=== PATIENT | male | born 1955 | race Caucasian/White ===

== ENCOUNTER 2018-09-27 19:03 | Emergency (ER) | payer OTHER ==
[~2018-09-27 19:03] MED LIST: AUG875 PO; NO RTN MEDS; TRA50 PO; [UNRECOGNIZED DRUG - CODE] OT
--- NOTE | 2018-09-27 19:17 | ER Report ---
History and Physical Time Seen By MD: 19:17 Hx. of Stated Complaint: patient started having pain in right lower back that started around 1400, patient states it is a constant ache. patient has not taken any medications as home. patient had a fall on friday. HPI/ROS CHIEF COMPLAINT: Back pain HISTORY OF PRESENT ILLNESS: 63-year-old male patient presents to emergency room with complaint of back pain. Patient states this pain started out of the blue about 2 to 2:30 this afternoon. Patient states that pain is worse with any type of activity. He denies having any loss of bowel or bladder control. He denies having any saddle paresthesia. Patient states that he is not taking any med ication for this. He denies having any fevers, chills or diarrhea. Patient has had 3 bouts of emesis this afternoon. REVIEW OF SYSTEMS: Respiratory: No cough, no dyspnea. Cardiovascular: No chest pain, no palpitations. Gastrointestinal: No vomiting, no abdominal pain. Musculoskeletal: As noted above Allergies: Coded Allergies: No Known Drug Allergies (Unverified , 09/27/18) Home Meds Active Scripts Ondansetron Hcl (ZOFRAN) 4 Mg Tablet, 4 MG PO Q6H PRN for NAUSEA/VOMITING, #20 TAB Prov:CHANA MAX 09/27/18 Oxycodone Hcl/Acetaminophen (PERCOCET 5-325 MG TABLET) 1 Each Tablet, 1 EACH PO Q4-6H PRN for PAIN, #12 TAB Prov:CHANA MAX 09/27/18 Discontinued Reported Medications Neomy Sulf/Polymyx B Sulf/Hc (Cortisporin Ear Suspension) 10 Ml Drops.susp, 4 GTT OT Q8H for 7 Days 10/14/11 Amoxicillin/Clavulanate K (Augmentin) 875 Mg Tab, 875 MG PO BIDBS, #20 10/14/11 Tramadol Hcl (Ultram) 50 Mg Tab, 50 MG PO Q4-6H PRN, #20 10/14/11 [No Rtn Meds] No Conflict Check 10/14/11 Past Medical/Surgical History Patient denies having any pertinent medical or surgical history. Reviewed Nurses Notes: Yes Hx Smoking: Yes (1/2PPD X > 20 YRS) Hx Substance Use Disorder: No Hx Alcohol Use: Yes (2-3 BEERS NIGHTLY) Constitutional Vital Sign - Last 24 Hours 2/24/19 2/24/19 2/24/19 2/24/19 19:11 19:18 19:30 19:33 Temp 97.3 Pulse 72 87 76 Resp 20 B/P (MAP) 175/104 178/106 (130) Pulse Ox 93 93 91 O2 Delivery Room Air 09/27/18 09/27/18 09/27/18 09/27/18 19:49 20:00 20:03 20:30 Pulse 87 B/P (MAP) 180/108 (132) 177/101 (126) 175/101 (125) Pulse Ox 93 09/27/18 09/27/18 09/27/18 09/27/18 20:33 20:38 20:53 21:00 Pulse 83 87 85 B/P (MAP) 172/119 (136) Pulse Ox 91 94 92 09/27/18 09/27/18 09/27/18 09/27/18 21:08 21:23 21:30 21:38 Pulse 82 82 73 B/P (MAP) 169/100 (123) Pulse Ox 91 94 90 Physical Exam General Appearance: The patient is alert, has no immediate need for airway protection and no current signs of toxicity. Respiratory: Chest is non tender, lungs are clear to auscultation. Cardiac: regular rate and rhythm Gastrointestinal: Abdomen is soft and non tender, no masses, bowel sounds normal. Musculoskeletal: Neck: Neck is supple and non tender. Back: Patient has tenderness to the paraspinal muscles just to the right of the lumbar spine. Extremities have full range of motion and are non tender. Skin: No rashes or lesions. DIFFERENTIAL DIAGNOSIS: After history and physical exam differential diagnosis was considered for back pain including but not limited to muscular pain, herniated disc, spine fracture, intra-abdominal causes and urinary tract infection. Medical Decision Making Data Points Laboratory Hematology Test 09/27/18 19:47 Urine Color Yellow Urine Clarity Clear Urine pH 5.0 pH (4.8-9.5) Urine Specific [place] 1.016 Urine Protein Negative mg/dL (NEGATIVE) Urine Glucose (UA) 150 mg/dL (NEGATIVE) Urine Ketones 20 mg/dL (NEGATIVE) Urine Blood Large (NEGATIVE) Urine Nitrite Negative (NEGATIVE) Urine Bilirubin Negative (NEGATIVE) Urine Urobilinogen Negative mg/dL (0.2-1.9) Urine Leukocyte Esterase Negative (NEGATIVE) Urine RBC 26 /HPF (0-2/HPF) Urine WBC 1 /HPF (0-5/HPF) Urine Squamous Epithelial Cells None /LPF (</=FEW) Urine Bacteria Negative /HPF (NONE-FEW) Urine Mucus None /HPF (NONE-FEW) Chemistry Test 09/27/18 19:47 Urine Color Yellow Urine Clarity Clear Urine pH 5.0 pH (4.8-9.5) Urine Specific [place] 1.016 Urine Protein Negative mg/dL (NEGATIVE) Urine Glucose (UA) 150 mg/dL (NEGATIVE) Urine Ketones 20 mg/dL (NEGATIVE) Urine Blood Large (NEGATIVE) Urine Nitrite Negative (NEGATIVE) Urine Bilirubin Negative (NEGATIVE) Urine Urobilinogen Negative mg/dL (0.2-1.9) Urine Leukocyte Esterase Negative (NEGATIVE) Urine RBC 26 /HPF (0-2/HPF) Urine WBC 1 /HPF (0-5/HPF) Urine Squamous Epithelial Cells None /LPF (</=FEW) Urine Bacteria Negative /HPF (NONE-FEW) Urine Mucus None /HPF (NONE-FEW) Urinalysis Test 09/27/18 19:47 Urine Color Yellow Urine Clarity Clear Urine pH 5.0 pH (4.8-9.5) Urine Specific [place] 1.016 Urine Protein Negative mg/dL (NEGATIVE) Urine Glucose (UA) 150 mg/dL (NEGATIVE) Urine Ketones 20 mg/dL (NEGATIVE) Urine Blood Large (NEGATIVE) Urine Nitrite Negative (NEGATIVE) Urine Bilirubin Negative (NEGATIVE) Urine Urobilinogen Negative mg/dL (0.2-1.9) Urine Leukocyte Esterase Negative (NEGATIVE) Urine RBC 26 /HPF (0-2/HPF) Urine WBC 1 /HPF (0-5/HPF) Urine Squamous Epithelial Cells None /LPF (</=FEW) Urine Bacteria Negative /HPF (NONE-FEW) Urine Mucus None /HPF (NONE-FEW) EKG/Imaging Imaging EXAMINATION: CT abdomen and pelvis without IV contrast HISTORY: Back pain. Hematuria. TECHNIQUE: Axial CT images of the abdomen and pelvis were obtained without IV contrast, with coronal and sagittal 2D reconstructed images. One of the following dose optimization techniques was utilized in the performance of this exam: Automated exposure control; adjustment of the mA and/or kV according to the patient's size; or use of an iterative reconstruction technique. Specific details can be referenced in the facility's radiology CT exam operational policy. COMPARISON: None. FINDINGS: Evaluation of the solid and viscus parenchymal organs is limited without the benefit of IV contrast. Kidney/ureters/bladder: Moderate hydronephrosis of the right kidney. There is an obstructing 5 mm calculus at the UPJ. A small amount of perinephric fluid surrounds the right kidney which may relate to forniceal rupture. Additional nonobstructing 6 mm calculus in the lower pole of the right kidney. Normal course and caliber of the right ureter below the level of the UPJ stone. The left kidney is negative for hydronephrosis. There is a large partially branching calculus in the lower pole of the left kidney extending into adjacent calyces, measuring 1.5 x 1.1 x 1.9 cm. No additional left-sided urinary calculi. The urinary bladder is decompressed and grossly unremarkable. Liver: There are multiple cysts in the liver. A 6 mm calcification in the right lobe of the liver may relate to old granulomatous disease. Gallbladder and bile ducts: Negative. Spleen: Negative. Pancreas: Negative. Adrenal glands: Negative. Bowel and peritoneum: The small bowel and colon are normal in caliber, without evidence of obstruction or any focal inflammatory process. No free fluid or free intraperitoneal air. Small hiatal hernia. Lymph node assessment: Negative. Vessels: Scattered vascular calcifications. Normal caliber abdominal aorta. Musculoskeletal: Severe chronic compression fracture of L1 with 80% loss of height. Multilevel degenerative changes along the spine. There is a prominent Schmorl's node along the superior endplate of L4. No acute osseous findings. Body wall: Small fat-containing left inguinal hernia. Lung bases: Negative. IMPRESSION: 1. Moderate hydronephrosis of the right kidney with an obstructing 5 mm calculus at the UPJ. Mild perinephric fluid surrounding the right kidney may relate to an associated forniceal rupture. 2. Additional nonobstructing calculi in both kidneys including a large partially branching calculus in the lower left kidney measuring up to 1.9 cm. 3. No other acute intra-abdominal findings. 4. Chronic appearing compression fracture of L1 with 80% loss of height Report Dictated By: Brenden Herndon MD at 09/27/2018 8:47 PM Report E-Signed By: Brenden Herndon MD at 09/27/2018 9:05 PM EXAMINATION: Lumbar Spine 4 views HISTORY: Back pain. COMPARISON: CT abdomen/pelvis performed today. FINDINGS: There are 5 lumbar-type vertebral segments. There is severe compression fracture of L1, with 80% loss of height. On the separate CT this appears to be chronic. Slight retropulsion of the posterior superior endplate. Mildly prominent Schmorl's node along the superior endplate of L4. There is a mild convex-left thoracolumbar curve measuring approximately 10 degrees with apex at L1. Otherwise normal alignment. No other evidence of fracture or subluxation along the lumbar spine. Vertebral body height is otherwise maintained. Posterior elements are intact. No pars defect on the oblique views. IMPRESSION: 1. Chronic appearing compression fracture of L1 with 80% loss of height. This is better defined on the separate CT examination. 2. No acute osseous findings along the lumbar spine. Report Dictated By: Brenden Herndon MD at 09/27/2018 9:08 PM Report E-Signed By: Brenden Herndon MD at 09/27/2018 9:11 PM ED Course/Re-evaluation ED Course Patient is between exam room, history and physical were obtained. Differential diagnoses were considered. On examination lungs are clear, heart is regular, abdomen soft nontender. Patient does have some slight tenderness to the paraspinal muscles to the right. A urinalysis was obtained, a lumbar x-ray and because patient had large blood in his urine a CT scan of the abdomen and pelvis was done. I discussed the findings with the patient. He did have large blood in his urine, he had a negative lumbar series, excluding L1 which does have a chronic compression fracture with 80% height loss. CT scan of the abdomen and pelvis did show a 5 mm obstructing stone with moderate hydronephrosis with what appears to be a forniceal rupture. I discussed the case with Dr. Kang, urologist, who recommended going ahead and treating this as a normal kidney stone. He is to follow-up with urology to evaluate for further treatment. Is his goal that he will have the stone moved further down the ureter prior to having to treat. I discussed this with the patient who verbalized understanding and agreement. We will discharge him with a limited supply of pain medication, some nausea medication. I did give him Dr. Kang's information so he can call for follow-up. Decision to Disposition Date: Sep 27, 2018 Decision to Disposition Time: 21:31 Depart Departure Latest Vital Signs Vital Signs Date Time Temp Pulse Resp B/P (MAP) Pulse Ox O2 Delivery O2 Flow Rate FiO2 09/27/18 21:38 73 90 09/27/18 21:30 169/100 (123) 09/27/18 19:11 97.3 20 Room Air Impression: Primary Impression: Renal calculi Condition: Improved Disposition: HOME OR SELF-CARE Referrals: EMILY KANG MD New Scripts Ondansetron Hcl (ZOFRAN) 4 Mg Tablet 4 MG PO Q6H PRN for NAUSEA/VOMITING, #20 TAB Prov: CHANA MAX 09/27/18 Oxycodone Hcl/Acetaminophen (PERCOCET 5-325 MG TABLET) 1 Each Tablet 1 EACH PO Q4-6H PRN for PAIN, #12 TAB Prov: CHANA MAX 09/27/18 Patient Instructions: Kidney Stones (ED) Additional Instructions: Increase fluid intake. Get plenty of rest. Follow up with Urology. Take the pain medication to help with the pain. Return to the ER if condition worsens. CHANA MAX Sep 27, 2018 19:17
[2018-09-27] MEDS ORDERED: KETOROLAC 30 MG/ML VIAL IM ONE (20:55)
--- NOTE | 2018-09-27 21:10 | RADIOLOGY IMAGING REPORT ---
FACILITY: [facility] - [place] PATIENT NAME: Vincent Hudson : 1955 MR: [id number] V: [id number] EXAM DATE: ORDERING PHYSICIAN: CHANA MAX TECHNOLOGIST: Location: [facility] - [place] Patient: Vincent Hudson : 1955 Visit/Account:[id number] Date of Sevice: 09/27/2018 EXAMINATION: CT abdomen and pelvis without IV contrast HISTORY: Back pain. Hematuria. TECHNIQUE: Axial CT images of the abdomen and pelvis were obtained without IV contrast, with patiño l and sagittal 2D reconstructed images. One of the following dose optimization techniques was utilized in the performance of this exam: Autom ated exposure control; adjustment of the mA and/or kV according to the patient's size; or use of an i terative reconstruction technique. Specific details can be referenced in the facility's radiology C T exam operational policy. COMPARISON: None. FINDINGS: Evaluation of the solid and viscus parenchymal organs is limited without the benefit of IV contrast. Kidney/ureters/bladder: Moderate hydronephrosis of the right kidney. There is an obstructing 5 mm marquez culus at the UPJ. A small amount of perinephric fluid surrounds the right kidney which may relate to forniceal rupture. Additional nonobstructing 6 mm calculus in the lower pole of the right kidney. Normal course and bradly david of the right ureter below the level of the UPJ stone. The left kidney is negative for hydronephrosis. There is a large partially branching calculus in the lower pole of the left kidney extending into adjacent calyces, measuring 1.5 x 1.1 x 1.9 cm. No addit ional left-sided urinary calculi. The urinary bladder is decompressed and grossly unremarkable. Liver: There are multiple cysts in the liver. A 6 mm calcification in the right lobe of the liver ma y relate to old granulomatous disease. Gallbladder and bile ducts: Negative. Spleen: Negative. Pancreas: Negative. Adrenal glands: Negative. Bowel and peritoneum: The small bowel and colon are normal in caliber, without evidence of obstructi on or any focal inflammatory process. No free fluid or free intraperitoneal air. Small hiatal hernia. Lymph node assessment: Negative. Vessels: Scattered vascular calcifications. Normal caliber abdominal aorta. Musculoskeletal: Severe chronic compression fracture of L1 with 80% loss of height. Multilevel dege nerative changes along the spine. There is a prominent Schmorl's node along the superior endplate of L4. No acute osseous findings. Body wall: Small fat-containing left inguinal hernia. Lung bases: Negative. IMPRESSION: 1. Moderate hydronephrosis of the right kidney with an obstructing 5 mm calculus at the UPJ. Mild per inephric fluid surrounding the right kidney may relate to an associated forniceal rupture. 2. Additional nonobstructing calculi in both kidneys including a large partially branching calculus i n the lower left kidney measuring up to 1.9 cm. 3. No other acute intra-abdominal findings. 4. Chronic appearing compression fracture of L1 with 80% loss of height Report Dictated By: Brenden Herndon MD at 09/27/2018 8:47 PM Report E-Signed By: Brenden Herndon MD at 09/27/2018 9:05 PM WSN:[id number]
--- NOTE | 2018-09-27 21:15 | RADIOLOGY IMAGING REPORT ---
FACILITY: [facility] PATIENT NAME: Vincent Hudson : 1955 MR: [id number] V: [id number] EXAM DATE: ORDERING PHYSICIAN: CHANA MAX TECHNOLOGIST: Location: [facility] - [place] Patient: Vincent Hudson : 1955 Visit/Account:[id number] Date of Sevice: 09/27/2018 EXAMINATION: Lumbar Spine 4 views HISTORY: Back pain. COMPARISON: CT abdomen/pelvis performed today. FINDINGS: There are 5 lumbar-type vertebral segments. There is severe compression fracture of L1, with 80% loss of height. On the separate CT this appears to be chronic. Slight retropulsion of the posterior superior endplate. Mildly prominent Schmorl's node along the superior endplate of L4. There is a mild convex-left thoracolumbar curve measuring approximately 10 degrees with apex at L1. O therwise normal alignment. No other evidence of fracture or subluxation along the lumbar spine. Vertebral body height is otherwi se maintained. Posterior elements are intact. No pars defect on the oblique views. IMPRESSION: 1. Chronic appearing compression fracture of L1 with 80% loss of height. This is better defined on th e separate CT examination. 2. No acute osseous findings along the lumbar spine. Report Dictated By: Brenden Herndon MD at 09/27/2018 9:08 PM Report E-Signed By: Brenden Herndon MD at 09/27/2018 9:11 PM WSN:[id number]
[2018-09-27 21:30] VITALS: BP 169/100
[2018-09-27] MEDS ORDERED: OXYC-865 PO (21:32)
[2018-09-27] MEDS ORDERED: ONDA4TAB97 PO (21:33)
[2018-09-27] MEDS ORDERED: oxyCODONE/ACETAMIN 5/325MG TH 2 TAB/BOTTLE PO ONE (21:40)
== END 2018-09-27 21:59 | disposition home or self-care (01) ==
LOC: ER 19:10
DX: N13.2 Hydronephrosis with renal and ureteral calculous obstruction (principal)
CPT/HCPCS: 72120; 74176; 81001; 96372; 99284; J1885